=== PATIENT | female | born 1995 | race Hispanic/Latino ===

== ENCOUNTER 2024-04-13 11:08 | Emergency (ER) | payer OTHER ==
[~2024-04-13] VITALS: Ht 149.9 cm; Wt 52.2 kg
[2024-04-13 11:18] VITALS: PULSE 82; RESP 16; TEMP 98.5; O2SAT 99
== END 2024-04-13 12:03 | disposition home or self-care (01) ==
LOC: FSED 11:11
DX: R51.9 Headache, unspecified (principal); B34.9 Viral infection, unspecified; H92.03 Otalgia, bilateral; Z33.1 Pregnant state, incidental
CPT/HCPCS: 0223U; 81003; 87400; 99283